=== PATIENT | female | born 1990 | race Hispanic/Latino ===

== ENCOUNTER 2018-09-12 22:01 | Emergency (ER) | payer MEDICAID, OTHER ==
[2018-09-12] MEDS ORDERED: DEXAMETHASONE SOD PHOSPHATE 10MG/ML 1ML VIAL ONE (22:52)
[2018-09-12] MEDS ORDERED: KETOROLAC TROMETHAMINE 60 MG/2 ML VIAL ONE (22:53)
== END 2018-09-12 23:57 | disposition home or self-care (01) ==
LOC: EDH 22:01
DX: S13.4XXA Sprain of ligaments of cervical spine, initial encounter (principal); V49.59XA Passenger injured in collision with other motor vehicles in traffic accident, initial encounter; Y93.89 Activity, other specified; Y92.410 Unspecified street and highway as the place of occurrence of the external cause; Y99.8 Other external cause status
CPT/HCPCS: 71045; 72040; 81025; 96372 ×2; 99284; J1100; J1885

== ENCOUNTER 2024-09-13 03:08 | Emergency (ER) | payer BC ==
[~2024-09-13] VITALS: Ht 154.9 cm; Wt 106.6 kg
[2024-09-13 03:22] VITALS: BP 122/59; PULSE 73; RESP 18; TEMP 98.2; O2SAT 98
[2024-09-13] MEDS: LIDOCAINE 4% ADH..PATCH TP ONE (03:55)
[2024-09-13] MEDS: TRIAMCINOLONE ACETONIDE 40 MG/ML 1ML VIAL IM ONE (03:55)
--- NOTE | 2024-09-13 04:46 | HMCIMG ---
EXAM: CR Lumbar Spine, 3 views. CLINICAL HISTORY: Pain. COMPARISON: None provided. FINDINGS: Lumbar alignment is within normal limits. Tiny marginal osteophytes at multiple levels. Normal intervertebral disc spaces. Normal vertebral body heights. No acute fracture. Soft tissues are within normal limits. IMPRESSION: No acute bony abnormality is evident. Mild spondylosis. /[place]
--- NOTE | 2024-09-13 05:14 | ERN ---
General Chief Complaint: Back Pain-No Injury Stated Complaint: C/O LOWER BACK PAIN RADIATING TO FRONT Time Seen by MD: 03:27 History of Present Illness Initial Comments Mr Oconnell is a 34 year old female who comes in today with back pain patient reports back pain in the radiates to the front part of her hip. Patient reports otherwise he has no other complaints. She has no sciatica. Allergies: Coded Allergies: No Known Drug Allergies (Unverified Allergy, Unknown, 09/13/18) Past Medical History Past Medical History: No Pertinent History Past Surgical History: None Female( History) LMP: Aug 15, 2024 ROS Dictation Constitutional: Negative for fever,chills, and weight loss Eyes: Negative for injury, pain,redness, and discharge ENT: Negative for injury,pain or swelling Cardiovascular: Negative for chest pain, palpitations, and edema Respiratory: Negative for shortness of breath, cough, and wheezing, Abdomen/GI: Negative for abdominal pain, nausea, vomiting, diarrhea, and constipation Back: Back pain : Negative for injury, bleeding and discharge MS/Extremity: Negative for injury and deformity Skin: Negative for rash, and discoloration Neuro: Negative for headache, weakness, numbness, tingling, and seizure Psych: Negative for suicide ideation, homicidal ideation, and hallucinations Physical Exam Physical Exam Dictation General: awake, alert, NAD Head/Face: Normocephalic, atraumatic Eyes: PERRL, EOMI, vision at baseline ENT: oral cavity clear, TMs clear, no signs of infection Neck: Trachea midline, supple Cardiovascular: RRR, normal S1/S2, No MRGs, no JVD Respiratory: CTAB, no respiratory distress, No rales or wheezes Abdomen: Soft, non-tender, non-distended, normal bowel sounds, no guarding or rebound. Skin: Warm, dry, normal turgor, no rash MS/Extremity: Pain with the palpation in the paraspinal region. Neuro: COAx4, GCS 15, strength 5/5, CN 2-12 intact, normal cerebellar exam, normal gait, Psych: Normal behavior, mood, and affect normal Results Laboratory and Microbiology Lab and Micro Result Laboratory Tests Test 09/13/24 03:39 Urine HCG, Qualitative NEGATIVE (NEGATIVE) MDM Patient is much improved with lidocaine patches, Kenalog. Lumbar spine shows no acute fracture. Patient has mild spondylosis. Advised patient that this is musculoskeletal. MDM: Differential diagnosis: Musculoskeletal, low back pain Rationale: Tests considered and ordered secondary to shared decision making include: Previous outside records reviewed: Old ER visits. Risk of complication and/or morbidity or mortality of patient management: None Medications-Per medication reconciliation Need for hospitalization: Patient does not meet criteria for hospitalization. Need for emergency major/minor surgery: No There are no social concerns with this patient. Prescription drug management Prescriptions will include symptomatic care Patient's prior external medical records from other ER visits were reviewed by me as indicated. Prior testing and results from previous visits were reviewed. Prior tests were taken into account with medical decision making and resource utilization, independent historian/historians were used to obtain complete medical history. I independently interpreted the test that were performed, results were reviewed by me and considered findings on radiology if ordered. Medical management and examination interpretation discussions were had by me with other qualified healthcare professionals as indicated for the patient's care. ED Course Orders Procedure Category Date Status Time Lumbar Spine 2-3vws RAD 09/13/24 Resulted 03:31 Triamcinolone Acet PHA 09/13/24 Complete 40mg/Ml 1ml (Kenalog 04:00 Lidocaine (Lidocaine PHA 09/13/24 Complete Patch 4%) 04:00 ,Urine Test LAB 09/13/24 Complete 03:31 Ketorolac PHA 09/13/24 Complete Tromethamine 30mg/Ml 04:00 Current Medications Medications (Trade) Dose Ordered Sig/Ricardo Route PRN Reason Start Time Stop Time Status Last Admin Dose Admin Ketorolac Tromethamine (toRADol) 30 mg ONCE ONCE IM 09/13/24 04:00 09/13/24 04:01 DC 09/13/24 03:55 Lidocaine (Lidocaine Patch 4%) 1 each ONCE ONCE TP 09/13/24 04:00 09/13/24 04:01 DC 09/13/24 03:55 Triamcinolone Acetonide (Kenalog 40) 40 mg ONCE ONCE IM 09/13/24 04:00 09/13/24 04:01 DC 09/13/24 03:55 Vital Signs Date Time Temp Pulse Resp B/P (MAP) Pulse Ox O2 Delivery O2 Flow Rate FiO2 09/13/24 03:22 98.2 73 18 122/59 98 Room Air* 0 21 09/13/24 03:09 98.8 77 20 130/81 99 Room Air DX & DISP Disposition: Discharge Departure Impression: Primary Impression: Back pain Condition: Stable Scripts Cyclobenzaprine HCl (Flexeril) 10 Mg Tab 1 TAB PO HS for muscle spasms for 30 Days, #30 TAB 0 Refills Prov: MARIA VICTORIA STOLL MD 09/13/24 Lidocaine (Lidocaine) 4 % Adh..patch 1 PATCH TP DAILY for 10 Days, #10 PATCH 0 Refills Prov: MARIA VICTORIA STOLL MD 09/13/24 Additional Instructions: Please follow up with the primary care physician in the next 2-4 days. Please start a lifestyle modification program focused on losing weight. Referrals: SELF,REFERRAL (PCP) MARIA VICTORIA STOLL MD Sep 13, 2024 05:14
[2024-09-13] MEDS ORDERED: CYCL10TA16 PO (05:48)
[2024-09-13] MEDS ORDERED: LIDO1ADH82 TP (05:48)
== END 2024-09-13 05:57 | disposition home or self-care (01) ==
LOC: EDH 03:08
DX: M54.50 Low back pain, unspecified (principal)
CPT/HCPCS: 99284; 81025; 72100; 96372 ×2; J1885; J3301